=== PATIENT | female | born 1975 | race Caucasian/White ===

== ENCOUNTER 2016-07-10 14:13 | Emergency (ER) | payer OTHER ==
[2016-07-10 15:40] VITALS: BP 118/83; PULSE 83; RESP 18; TEMP 99.2; O2SAT 100
== END 2016-07-10 15:52 | disposition home or self-care (01) | DRG 605 ==
LOC: ED 14:13
DX: S20.221A Contusion of right back wall of thorax, initial encounter (principal); W19.XXXA Unspecified fall, initial encounter
CPT/HCPCS: 71101; 99282